=== PATIENT | male | born 1955 | race Caucasian/White ===

== ENCOUNTER 2024-06-11 12:34 | Inpatient (IN) | payer MEDICARE, OTHER ==
[~2024-06-11] VITALS: Ht 177.8 cm; Wt 72.6 kg
[2024-06-11 13:32] LABS: BASOPHILS # (AUTO) 0.3 K/UL (0.0-0.2); BASOPHILS % (AUTO) 3.3 % (0.0-2.0); EOSINOPHILS # (AUTO) 0.4 K/uL (0.0-0.7); EOSINOPHILS % (AUTO) 4.6 % (0.0-7.0); HEMATOCRIT 45.4 % (36.7-47.1); HEMOGLOBIN 14.7 g/dL (12.5-16.3); LYMPHOCYTES # (AUTO) 1.2 K/uL (0.8-4.8); LYMPHOCYTES % (AUTO) 13.9 % (20.5-51.5); MEAN CORPUSCULAR HEMOGLOBIN 29.1 uug (23.8-33.4); MEAN CORPUSCULAR HGB CONC 32 g/dL (32.5-36.3); MEAN CORPUSCULAR VOLUME 89.7 fL (73.0-96.2); MONOCYTES # (AUTO) 0.5 K/uL (0.1-1.30); MONOCYTES % (AUTO) 6.2 % (0.0-11.0); NEUTROPHILS # (AUTO) 6.1 K/uL (1.8-8.9); PLATELET COUNT (AUTO) 190 K/uL (152-348); RED BLOOD CELL COUNT(AUTO) 5.07 MIL/uL (4.06-5.63); RED CELL DISTRIBUTION WIDTH 14.7 % (12.1-16.2); WHITE BLOOD COUNT (AUTO) 8.5 K/uL (3.6-10.2)
[2024-06-11 13:38] LABS: DIFFERENTIAL COMMENT 1
[2024-06-11 13:42] LABS: CALCIUM 9.6 mg/dL (8.5-10.1); CARBON DIOXIDE 27 mmol/L (21-32); CHLORIDE 107 mmol/L (98-107); CREATININE 1.3 mg/dL (0.6-1.3); GLUCOSE 118 mg/dL (74-106); POTASSIUM 4.1 mmol/L (3.5-5.1); SODIUM SERUM 145 mmol/L (136-145); UREA NITROGEN, BLOOD 17 mg/dL (7-18)
[2024-06-11 13:49] LABS: ALANINE AMINOTRANSFERASE 13 U/L (16-63); ALBUMIN 3.7 g/dL (3.4-5.0); ALKALINE PHOSPHATASE 78 U/L (50-136); ASPARTATE AMINOTRANSFERASE 15 U/L (15-37); BILIRUBIN,DIRECT 0.3 mg/dL (0.0-0.2); BILIRUBIN,TOTAL 1.9 mg/dL (0.2-1.0); TOTAL PROTEIN, SERUM 7.4 g/dL (6.4-8.2)
[2024-06-11] MEDS ORDERED: ATOR40TA PO (13:56)
[2024-06-11] MEDS ORDERED: LOSA100T31 PO (13:56)
[2024-06-11] MEDS ORDERED: CLOP75TA33 PO (13:56)
[2024-06-11] MEDS ORDERED: NIFE60TA73 PO (13:56)
[2024-06-11] MEDS ORDERED: AMLO-212 PO (13:56)
[2024-06-11] MEDS ORDERED: ASPI-1420 PO (13:56)
[2024-06-11] MEDS ORDERED: TAMS-3 (13:56)
[2024-06-11] MEDS ORDERED: CARV12.52 PO (13:56)
[2024-06-11 14:01] LABS: LYMPHOCYTES % (MANUAL) 23 % (20-40); MONOCYTES % (MANUAL) 9 % (2-10); NEUTROPHILS % (MANUAL) 66 % (42-75)
[2024-06-11 14:02] LABS: EOSINOPHILS % (MANUAL) 2 % (0-8); PLATELET ESTIMATE ADEQUATE
[2024-06-11 14:05] LABS: AMMONIA < 10 umol/L (11-32)
[2024-06-11] MEDS: IV NORMAL SALINE 1000 ML BAG IV ONE (14:13)
[2024-06-11 14:32] LABS: MAGNESIUM 2.1 mg/dL (1.8-2.4)
[2024-06-11] MEDS ORDERED: CLONIDINE HCL 0.1 MG TABLET ONE (15:45)
[2024-06-11] MEDS: CLONIDINE HCL 0.1 MG TABLET PO ONE (15:48)
[2024-06-11 18:20] VITALS: BP 165/95; TEMP 98.3; O2SAT 98
[2024-06-11 20:00] VITALS: BP 166/104; TEMP 97.8; O2SAT 100
[2024-06-11] MEDS ORDERED: REMEDY ESSENTIAL ZINC PASTE 113 GM TP PRN (20:15)
[2024-06-11] MEDS ORDERED: ONDANSETRON 4 MG/2 ML VIAL IV PRN (20:15)
[2024-06-11] MEDS ORDERED: ACETAMINOPHEN 325 MG TABLET PO PRN (20:15)
[2024-06-11] MEDS: IV LACTATED RINGERS SOLUTION 1,000 ML IV SCH (20:23)
[2024-06-11] MEDS: ATORVASTATIN 40 MG TABLET PO SCH (20:34)
[2024-06-11 23:37] VITALS: BP 160/104; TEMP 98.1; O2SAT 100
[2024-06-12 05:18] VITALS: BP 178/104; TEMP 98; O2SAT 98
[2024-06-12] MEDS: hydrALAZINE HCL 20 MG/1 ML VIAL IV PRN (05:35)
[2024-06-12 06:29] LABS: BASOPHILS % (AUTO) 0.5 % (0.0-2.0); EOSINOPHILS # (AUTO) 0.4 K/uL (0.0-0.7); EOSINOPHILS % (AUTO) 5.1 % (0.0-7.0); HEMATOCRIT 45.3 % (36.7-47.1); HEMOGLOBIN 15.2 g/dL (12.5-16.3); LYMPHOCYTES # (AUTO) 2.6 K/uL (0.8-4.8); LYMPHOCYTES % (AUTO) 31.9 % (20.5-51.5); MEAN CORPUSCULAR HEMOGLOBIN 29.9 uug (23.8-33.4); MEAN CORPUSCULAR HGB CONC 34 g/dL (32.5-36.3); MEAN CORPUSCULAR VOLUME 89.4 fL (73.0-96.2); MONOCYTES # (AUTO) 0.7 K/uL (0.1-1.30); MONOCYTES % (AUTO) 8.8 % (0.0-11.0); NEUTROPHILS # (AUTO) 4.4 K/uL (1.8-8.9); NEUTROPHILS % (AUTO) 53.7 % (38.5-71.5); PLATELET COUNT (AUTO) 194 K/uL (152-348); RED BLOOD CELL COUNT(AUTO) 5.07 MIL/uL (4.06-5.63); RED CELL DISTRIBUTION WIDTH 14.2 % (12.1-16.2); WHITE BLOOD COUNT (AUTO) 8.2 K/uL (3.6-10.2)
[2024-06-12 06:33] LABS: DIFFERENTIAL COMMENT 1
[2024-06-12 06:50] LABS: CALCIUM 9.9 mg/dL (8.5-10.1); CREATININE 1.1 mg/dL (0.6-1.3); PHOSPHOROUS 3.3 mg/dL (2.5-4.9); POTASSIUM 5.1 mmol/L (3.5-5.1)
[2024-06-12 08:00] VITALS: BP 159/102; TEMP 98.5; O2SAT 98
[2024-06-12] MEDS ORDERED: CARVEDILOL 12.5 MG TABLET PO SCH ×2 (08:00→09:00)
[2024-06-12] MEDS: CLOPIDOGREL 75 MG TABLET PO SCH (08:37)
[2024-06-12] MEDS: NIFEdipine XL 60 MG TABSR PO SCH (08:38)
[2024-06-12] MEDS ORDERED: AMLODIPINE 5 MG TABLET PO SCH (09:00)
[2024-06-12] MEDS ORDERED: TAMSULOSIN HCL 0.4 MG CAP.SR.24H PO SCH ×2 (09:00→21:00)
[2024-06-12] MEDS ORDERED: ASPIRIN EC 81 MG TABLET.DR PO SCH (09:00)
[2024-06-12] MEDS ORDERED: LOSARTAN POTASSIUM 50 MG TABLET PO SCH ×2 (09:00)
[2024-06-12] MEDS: ASPIRIN EC 81 MG TABLET.DR PO SCH (10:42)
[2024-06-12 12:27] VITALS: BP 148/101; TEMP 98.4; O2SAT 98
[2024-06-12 15:51] VITALS: BP 164/98; TEMP 98.9; O2SAT 98
[2024-06-12] MEDS ORDERED: CELECOXIB 100 MG CAPSULE PO SCH (17:30)
[2024-06-12 20:00] VITALS: BP 127/87; TEMP 97.7; O2SAT 95
[2024-06-12] MEDS: HYDROCODONE/APAP 10-325 MG TABLET PO PRN (20:18)
[2024-06-13] VITALS: BP 165/96; TEMP 97.7; O2SAT 96
[2024-06-13 04:00] VITALS: BP 151/96; TEMP 98.2; O2SAT 97
[2024-06-13 08:00] VITALS: BP 153/89; TEMP 98.3; O2SAT 96
[2024-06-13] MEDS: GABAPENTIN 300 MG CAPSULE PO SCH (08:47)
[2024-06-13 12:00] VITALS: BP 156/93; TEMP 97.9; O2SAT 98
[2024-06-13] MEDS ORDERED: CELE100C PO (14:02)
[2024-06-13] MEDS ORDERED: GABA100C PO (14:02)
[2024-06-13] MEDS ORDERED: PANT40TA49 PO (14:02)
[2024-06-13 15:56] VITALS: BP 123/68; TEMP 98.3; O2SAT 100
[2024-06-13 20:00] VITALS: BP 145/91; TEMP 97.4; O2SAT 98
[2024-06-14 06:00] VITALS: BP 164/71; TEMP 98.1; O2SAT 98
[2024-06-14 11:09] VITALS: BP 130/90; TEMP 98; O2SAT 98
== END 2024-06-14 16:50 | disposition home health service (06) | DRG 48 ==
LOC: ER 12:34 → TELE3 17:40 → MEDSURG3 06-13 17:30
PROVIDERS: ADMIT Nurse Practitioner Acute Care; ATTEND Nurse Practitioner Acute Care
DX: G90.89 Other disorders of autonomic nervous system (principal); E44.0 Moderate protein-calorie malnutrition; F03.90 Unspecified dementia, unspecified severity, without behavioral disturbance, psychotic disturbance, mood disturbance, and anxiety; Z68.23 Body mass index [BMI] 23.0-23.9, adult; N40.0 Benign prostatic hyperplasia without lower urinary tract symptoms; E78.5 Hyperlipidemia, unspecified; I25.10 Atherosclerotic heart disease of native coronary artery without angina pectoris; Z95.1 Presence of aortocoronary bypass graft; I49.3 Ventricular premature depolarization; I25.2 Old myocardial infarction; I10 Essential (primary) hypertension; R41.89 Other symptoms and signs involving cognitive functions and awareness; M54.50 Low back pain, unspecified; G89.28 Other chronic postprocedural pain; R26.2 Difficulty in walking, not elsewhere classified; R53.1 Weakness; Z79.82 Long term (current) use of aspirin; Z79.02 Long term (current) use of antithrombotics/antiplatelets; Z79.899 Other long term (current) drug therapy; R94.31 Abnormal electrocardiogram [ECG] [EKG]; E03.9 Hypothyroidism, unspecified
CPT/HCPCS: 36415; 70030-TC; 70450; 71045; 83605; 83735; 84100; 84443; 84484; 85025; 87040; 93307; A4606; A4663; G0378; J0360; J7040; J7120